=== PATIENT | female | born 1945 | race Caucasian/White ===

== ENCOUNTER 2021-06-23 16:14 | Emergency (ER) | payer OTHER, SELFPAY ==
--- NOTE | ~2021-06-23 | XR_ITS ---
EXAMINATION: XR shoulder LT min 2V DATE: 06/23/2021 16:40 INDICATION: Left shoulder pain. Decreased range of motion. TECHNIQUE: AP internally and externally rotated, AP oblique externally rotated and transscapular Y vi ews of the left shoulder were obtained. COMPARISON: None FINDINGS: Normal alignment. No fracture. Glenohumeral joint is normal. Mild acromioclavicular osteoarthritis. Large anterior subacromial spur. Mild cystic and hypertrophic change along the greater tuberosity whi ch can be seen in the setting of chronic rotator cuff disease. Soft tissues are unremarkable. Visuali zed portion of the left lung is clear. IMPRESSION: Large subacromial spur and cystic and hypertrophic change along the greater tuberosity which suggests possibility of chronic rotator cuff disease. Reviewed, dictated and finalized at location A. ECT SCHEDULER IMPRESSION: Large subacromial spur and cystic and hypertrophic change along the greater tub erosity which suggests possibility of chronic rotator cuff disease.
[2021-06-23 16:24] VITALS: BP 177/90; PULSE 81; RESP 16; TEMP 36.3; O2SAT 99
--- NOTE | 2021-06-23 16:46 | ED.UPPEXIN ---
HPI - Extremity Injury (Upper) General Chief Complaint: Extremity Problem,Nontraumatic Stated Complaint: Left shoulder Pain Time Seen by Provider: 06/23/21 16:25 Source: patient, family, RN notes reviewed and old records reviewed Mode of arrival: ambulatory Limitations: no limitations History of Present Illness HPI narrative: 76-year-old female presents to the [facility] with left shoulder pain since 3 PM today. 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 Has decreased range of motion. No bruising or swelling noted. Tried applying ice to the area Related Data Allergies Allergy/AdvReac Type Severity Reaction Status Date / Time No Known Allergies Allergy Verified 06/23/21 16:17 Review of Systems Review of Systems: All systems reviewed & are unremarkable except as noted in HPI and below Constitutional: Constitutional: Reports no additional constitutional complaints, Denies chills, Denies fever(s), Denies headache(s) and Denies weakness Eyes: Eyes: Reports no additional eye complaints ENT: Reports system reviewed and no additional complaints, except as documented, Denies vertigo, Denies dizziness and Denies headache(s) Cardiovascular: Cardiovascular: Reports no additional cardiovascular complaints, Denies chest pain, Denies syncope and Denies dyspnea Respiratory: Respiratory: Reports no additional respiratory complaints, Denies cough and Denies dyspnea Gastrointestinal: Gastrointestinal: Reports no additional gastrointestinal complaints, Denies abdominal pain, Denies nausea and Denies vomiting Musculoskeletal: Musculoskeletal: Reports as per HPI, Reports arthralgias (Left lateral and anterior shoulder), Denies joint swelling and Denies numbness Integumentary/Breasts: Skin/Breast: Reports system reviewed and no additional complaints, except as docu Neurologic: Reports system reviewed and no additional complaints, except as documented, Denies confusion, Denies vertigo, Denies dizziness, Denies syncope, Denies headache(s), Denies focal weakness, Denies numbness and Denies weakness Psychiatric: Psychiatric: Reports no additional psychiatric complaints and Denies confusion Allergic/Immunologic: Allergic/Immunologic: Reports no additional allergic/immunologic complaints [facility] Family History Family History Father Cerebrovascular accident Mother Cerebrovascular accident Social History Social History Smoking status: Never smoker Alcohol intake: never Substance use: never Comments At the time of my signature, I reviewed and agree with the nursing past medical, surgical, social, and family history. There is no relevant family history pertinent to the patient complaint. Exam Const: General: healthy appearing, no acute distress and alert; No confusion Nutritional Appearance: well nourished Orientation/consciousness: patient oriented x3 Limitations: no limitations HENMT: Head: normal to inspection Ears: external ears normal Eyes: Pupils: Equal, round and reactive pupils present Neck: Neck: normal visual inspection, no lymphadenopathy and no meningeal signs Chest: Chest palpation & inspection: normal inspection of the chest Resp: Effort & Inspection: normal respiratory effort and no use of accessory muscles Auscultation: clear to auscultation bilaterally, no crackles, no rales, no rhonchi and no wheezes Cardio: Rate: regular rate Rhythm: regular rhythm : General: Yes no CVA tenderness Back/Spine/Pelvis: Back: no CVA tenderness Cervical Spine: normal cervical lordosis Thoracic/Lumbar Spine: thoracic and lumbar spine normal to inspection Skin: General skin exam: normal color Rashes: no rashes Wounds: no wounds Neuro: General: patient oriented x3, moves all extremities, no meningeal signs, no focal
== END 2021-06-23 17:10 | disposition home or self-care (01) ==
PROVIDERS: Emergency Provider Nurse Practitioner; PCP Internal Medicine
DX: S46.912A Strain of unspecified muscle, fascia and tendon at shoulder and upper arm level, left arm, initial encounter (principal); X50.9XXA Other and unspecified overexertion or strenuous movements or postures, initial encounter; M67.912 Unspecified disorder of synovium and tendon, left shoulder; E78.00 Pure hypercholesterolemia, unspecified; I10 Essential (primary) hypertension
CPT/HCPCS: 73030; 99213; G0463

== ENCOUNTER → 2021-07-01 17:09 | Outpatient (CLI) | payer OTHER, SELFPAY ==
--- NOTE | ~2021-07-01 | XR_ITS ---
EXAMINATION: XR wrist LT min 3V DATE: 07/01/2021 17:24 INDICATION: Left wrist pain TECHNIQUE: Posteroanterior, ulnar deviation, oblique, and lateral views of the left wrist were obtain ed. COMPARISON: 08/05/2015 FINDINGS: Bone alignment is normal. No fracture. Polyarticular osteoarthritis, moderate severity at the first c arpometacarpal joint and mild at the wrist, distal radioulnar, pisotriquetral, midcarpal and triscaph e joints. There are now a couple rim calcified lesions in the soft tissues volar to the ulnar side of the wrist proximal to the pisotriquetral articulation. Soft tissues are otherwise unremarkable. IMPRESSION: 1. Polyarticular osteoarthritis, moderate at the first carpometacarpal joint and otherwise mild at se veral joints at the left hand and wrist. 2. A couple rim calcified lesions projecting over the soft tissues in the region of the pisotriquetra l recess, likely a degenerative loose osteochondral body although differential would include rim calc ified ulnar artery aneurysm. Reviewed, dictated and finalized at location A. T ROLLER COVERMAKER IMPRESSION: 1. Polyarticular osteoarthritis, moderate at the first carpometacarpal joint an d otherwise mild at several joints at the left hand and wrist. 2. A couple rim calcified lesions projecting over the soft tissues in the regio n of the pisotriquetral recess, likely a degenerative loose osteochondral body although differential would include rim calcified ulnar artery aneurysm.
== END ==
LOC: EXPCRAD 17:11
PROVIDERS: PCP Family Medicine; Visit Provider Family Medicine
DX: M19.032 Primary osteoarthritis, left wrist (principal)
CPT/HCPCS: 73110

== ENCOUNTER 2021-10-25 11:15 | Outpatient (CLI) | payer OTHER, SELFPAY ==
--- NOTE | ~2021-10-25 | MR_ITS ---
EXAMINATION: MR wrist LT wo con DATE: 10/25/2021 12:06 INDICATION: Localized swelling, mass or lump at the left wrist with pain at the ulnar side of the car pus and fourth and fifth finger numbness. TECHNIQUE: Magnetic resonance imaging (MRI) of the left wrist was performed without intravenous contr ast. Sequences performed include axial PD-weighted FSE and PD-weighted FS FSE, coronal PD-weighted FS FSE and T1-weighted SE, and sagittal PD-weighted FS FSE and PD-weighted FSE. COMPARISON: None FINDINGS: Intrinsic ligaments: The scapholunate and lunotriquetral ligaments are both intact. Triangular fibrocartilage complex (TFCC): Partial tears of the central fibrocartilaginous disc and both the ulnar styloid and foveal attachment s of the triangular fibrocartilage complex. The dorsal and volar radioulnar ligaments remain otherwi se intact. Additional partial tear of the ulnar collateral ligament and ulnotriquetral ligaments. The extensor carpi ulnaris tendon sheath remains intact. Extensor wrist: Extensor tendons of the wrist are normal. No tenosynovitis. Flexor wrist: The flexor tendons of the wrist are normal. No abnormality in the carpal tunnel with normal median n erve. Bones/other: Bone alignment is normal. No fracture or pathologic marrow replacing process. Polyarticular osteoarth ritis. Moderate severity at the first carpometacarpal joint and mild at the distal radioulnar, wrist, midcarpal, triscaphe and pisotriquetral articulations. Large degenerative loose osteochondral bodies within the pisotriquetral recess at the volar/ulnar aspect of the wrist. Prominent cystic change at the larger of the 3 loose osteochondral bodies. One of the smaller in the distalmost of the 3 loose o steochondral bodies abuts the deep margin of the ulnar nerve at the entrance to Guyon's canal with th e tip of the fusiform on the opposite side of the ulnar nerve. No erosions to suggest inflammatory ar thritis. IMPRESSION: 1. Large loose osteochondral bodies at the pisotriquetral recess, one with prominent cystic changes a nd a second abutting the deep margin of the ulnar nerve at the entrance to Guyon's canal. This may re present the etiology for the reported numbness of the fourth and fifth digits. 2. Polyarticular osteoarthritis, moderate severity at the first carpometacarpal joint and otherwise m ild at multiple additional joints in the left wrist and carpus. 3. Partial tears of multiple components of the triangular fibrocartilage complex. Reviewed, dictated and finalized at location B. IMPRESSION: 1. Large loose osteochondral bodies at the pisotriquetral recess, one with prom inent cystic changes and a second abutting the deep margin of the ulnar nerve a t the entrance to Guyon's canal. This may represent the etiology for the report ed numbness of the fourth and fifth digits. 2. Polyarticular osteoarthritis, moderate severity at the first carpometacarpal joint and otherwise mild at multiple additional joints in the left wrist and c arpus. 3. Partial tears of multiple components of the triangular fibrocartilage comple x.
== END 2021-10-25 11:16 ==
PROVIDERS: PCP Family Medicine; Visit Provider Orthopaedic Surgery
DX: R22.32 Localized swelling, mass and lump, left upper limb (principal); M19.031 Primary osteoarthritis, right wrist
CPT/HCPCS: 73221

== ENCOUNTER 2021-11-25 07:14 | Outpatient (CLI) | payer OTHER, SELFPAY ==
--- NOTE | ~2021-11-25 | MM_ITS ---
EXAMINATION: MM screening felisha BI w josh HISTORY: Screening TECHNIQUE: Craniocaudal and mediolateral oblique 3-D tomosynthesis images were obtained and synthetic 2-D images were generated. CAD analysis was submitted and interpreted. COMPARISON: No prior mammogram is available for comparison at this institution. BREAST PARENCHYMAL COMPOSITION: Breast composed of scattered areas of fibroglandular density FINDINGS: Bilateral breast asymmetries are stable. There is a developing cluster of indeterminate mauro cifications in the upper outer quadrant of the left breast, middle third. IMPRESSION: 1. Developing clustered indeterminate left breast calcifications, upper outer quadrant. 2. Magnification views are recommended. BI-RADS Category 0: Incomplete: Needs additional imaging evaluation. Reviewed, dictated and finalized at location A. IMPRESSION: 1. Developing clustered indeterminate left breast calcifications, upper outer q uadrant. 2. Magnification views are recommended. BI-RADS Category 0: Incomplete: Needs additional imaging evaluation.
== END 2021-11-25 07:15 | disposition home or self-care (01) ==
LOC: ANHIMG 07:16
PROVIDERS: PCP Family Medicine; Visit Provider Family Medicine
DX: Z12.31 Encounter for screening mammogram for malignant neoplasm of breast (principal); R92.8 Other abnormal and inconclusive findings on diagnostic imaging of breast
CPT/HCPCS: 77063; 77067

== ENCOUNTER 2021-12-04 12:04 | Outpatient (CLI) | payer OTHER, SELFPAY ==
--- NOTE | ~2021-12-04 | MM_ITS ---
EXAMINATION: MM diagnostic mammo unilat LT HISTORY: Developing clustered microcalcifications reported in upper outer quadrant of left breast on 11/25/2021 screening mammogram TECHNIQUE: Additional ML 3-D tomosynthesis images of the left breast were performed and synthetic 2-D images were generated. Magnification ML, MLO and CC views of upper outer quadrant of left breast CAD analysis was submitted and interpreted. COMPARISON: 11/25/2021 and 10/13/2016 bilateral screening mammogram examinations FINDINGS: Likely benign microcalcifications and arterial calcifications are noted on the left. No jerod picious linear or branching microcalcifications are noted. Upper outer quadrant left breast ultrasound correlation is recommended. IMPRESSION: 1. Probable benign microcalcifications, upper outer quadrant of left breast 2. Upper outer quadrant left breast ultrasound examination is recommended BI-RADS Category 0: Incomplete: Needs additional imaging evaluation. Reviewed, dictated and finalized at location A.
== END 2021-12-04 12:05 | disposition home or self-care (01) ==
PROVIDERS: PCP Family Medicine; Visit Provider Family Medicine
DX: R92.8 Other abnormal and inconclusive findings on diagnostic imaging of breast (principal)
CPT/HCPCS: 77065

== ENCOUNTER 2021-12-17 13:18 | Outpatient (CLI) | payer OTHER, SELFPAY ==
--- NOTE | ~2021-12-17 | US_ITS ---
EXAMINATION: US breast LT limited HISTORY: Patient with recent diagnostic mammogram demonstrating calcifications with possible associat ed mass TECHNIQUE: Limited left breast ultrasound is performed. FINDINGS: There is no evidence of focal abnormal cystic or solid mass in the vicinity of the mammogra phic finding in question. IMPRESSION: No sonographically detected mass. Six month follow-up left diagnostic mammogram is recommended for pr obably benign calcifications. BI-RADS category 3, probably benign findings. Reviewed, dictated and finalized at location A. IMPRESSION: No sonographically detected mass. Six month follow-up left diagnostic mammogram is recommended for probably benign calcifications. BI-RADS category 3, probably benign findings.
== END 2021-12-17 13:19 | disposition home or self-care (01) ==
PROVIDERS: PCP Family Medicine; Visit Provider Family Medicine
DX: R92.8 Other abnormal and inconclusive findings on diagnostic imaging of breast (principal)
CPT/HCPCS: 76642

== ENCOUNTER → 2022-04-20 11:36 | Outpatient (CLI) | payer OTHER, SELFPAY ==
--- NOTE | ~2022-04-20 | XR_ITS ---
Lumbosacral Spine: AP, oblique, and lateral views Clinical History: Pain The normal lordotic curve is maintained. The vertebral bodies and posterior elements are intact. Th e intervertebral disc spaces are preserved. Mild facet joint degenerative changes are present from L2 through S1. The sacroiliac joints are normally outlined. Impression: Mild facet joint degenerative changes, as above. Reviewed, dictated and finalized at location . NG CARRIER Impression: Mild facet joint degenerative changes, as above.
== END ==
PROVIDERS: PCP Family Medicine; Visit Provider Family Medicine
DX: M54.50 Low back pain, unspecified (principal)
CPT/HCPCS: 72110

== ENCOUNTER 2022-04-20 11:55 | Outpatient (CLI) | payer OTHER, SELFPAY ==
[2022-04-20 18:55] LABS: Hemoglobin A1C 5.6 % (<5.7)
[2022-04-20 19:00] LABS: Alanine Aminotransferase 25 U/L (6-35); Albumin Level 4.1 g/dL (3.5-5.1); Alkaline Phosphatase 85 U/L (38-126); Anion Gap 7 mmol/L (8-16); Aspartate Amino Transferase 59 U/L (14-36); Bilirubin,Total 1.5 mg/dL (0.2-1.3); Blood Urea Nitrogen 19 mg/dL (7-17); Calcium 9.3 mg/dL (8.4-10.2); Carbon Dioxide 28 mmol/L (22-30); Chloride 102 mmol/L (98-107); Cholesterol 148 mg/dL (0-200); Estimated Glomerular Filt Rate 54; Glucose 107 mg/dL (65-110); HDL Direct 44 mg/dL; Potassium 4.3 mmol/L (3.4-5.0); Sodium 137 mmol/L (137-145); Triglycerides 193 mg/dL (<150)
[2022-04-20 19:11] LABS: LDL Cholesterol Direct 67 mg/dL
[2022-04-20 19:12] LABS: Basophils Absolute Auto 0.1 K/mm3 (0.0-0.1); Basophils Percent Auto 0.9 % (0.2-1.2); Eosinophils Absolute Auto 0.2 K/mm3 (0-0.3); Hematocrit 43.2 % (37.0-47.0); Hemoglobin 14.1 g/dL (12.0-15.0); Immature Granulocyte Absolute 0.02 K/mm3 (0.00-0.031); Immature Granulocyte Percent A 0.2 % (0-0.5); Lymphocytes Absolute Auto 2.39 K/mm3 (0.9-3.2); Lymphocytes Percent Auto 29.5 % (18.3-44.2); Mean Corpuscular HGB Conc 32.6 g/dl (32-36); Mean Corpuscular Hemoglobin 31.3 pg (26-34); Mean Platelet Volume 9.6 fl (7.4-10.4); Monocytes Absolute Auto 0.6 K/mm3 (0.1-0.6); Monocytes Percent Auto 7.3 % (2.6-8.5); Neutrophils Absolute Auto 4.9 K/mm3 (1.3-6.7); Neutrophils Percent Auto 60.1 % (45.5-73.1); Platelet Count Result 350 k/mm3 (150-375); Red Cell Distribution Width 13.4 % (11.5-14.5); White Blood Count 8.1 K/mm3 (4.5-10.0)
[2022-04-20 20:45] LABS: Erythrocyte Sedimentation Rate 13 mm/hr (0-20)
[2022-04-21 02:43] LABS: Folic Acid 17.1 ng/mL (2.76->20)
[2022-04-26 06:01] LABS: Alpha 1 Globulin 0.3 g/dL (0.2-0.3); Alpha 2 Globulin 0.8 g/dL (0.5-0.9); Beta 1 Globulin 0.5 g/dL (0.4-0.6); Gamma Globulin 1.2 g/dL (0.8-1.7); Protein, Total 7.2 g/dL (6.1-8.1)
== END 2022-04-20 11:56 | disposition home or self-care (01) ==
LOC: ANHGOSHLAB 11:56
PROVIDERS: PCP Family Medicine; Visit Provider Family Medicine
DX: G62.9 Polyneuropathy, unspecified (principal); Z13.29 Encounter for screening for other suspected endocrine disorder; I10 Essential (primary) hypertension; R53.83 Other fatigue; E11.9 Type 2 diabetes mellitus without complications; E78.2 Mixed hyperlipidemia
CPT/HCPCS: 36415; 72110; 80053; 80061; 82607; 82746; 83036; 84155; 84165; 84443; 85025; 85652; 86038

== ENCOUNTER 2022-06-29 11:11 | Outpatient (CLI) | payer OTHER, SELFPAY ==
--- NOTE | ~2022-06-29 | XR_ITS ---
AP and lateral views of the left tibia/fibula Clinical History: Pain and tingling Findings: No acute fracture or dislocation is seen. Osseous alignment is anatomic. Joint spaces are p reserved without significant erosive or degenerative change. Soft tissues are unremarkable. Impression: Unremarkable left tib-fib radiographs. Reviewed, dictated and finalized at location . TRUCKER Impression: Unremarkable left tib-fib radiographs.
== END 2022-06-29 11:12 ==
LOC: MICIMG 11:12
PROVIDERS: PCP Family Medicine; Visit Provider Family Medicine
DX: M79.605 Pain in left leg (principal)
CPT/HCPCS: 73590

== ENCOUNTER 2022-07-26 09:06 | Emergency (ER) | payer OTHER, SELFPAY ==
[2022-07-26 09:25] VITALS: BP 160/95; PULSE 63; RESP 14; TEMP 36.5; O2SAT 97
--- NOTE | 2022-07-26 09:45 | ED.URI ---
HPI - URI/Sore Throat General Chief Complaint: Upper Respiratory Infection Stated Complaint: Left Ear Irritation/Headache/Face Time Seen by Provider: 07/26/22 09:45 Source: patient, RN notes reviewed and old records reviewed Mode of arrival: ambulatory Limitations: no limitations History of Present Illness HPI Narrative: 77-year-old female presents to the [facility] with complaints of left ear pain, headache and facial pressure that started yesterday. Denies fevers. 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 No treatment prior to arrival Onset (ago): day(s) (1) Treatments prior to arrival: none Related Data Allergies Allergy/AdvReac Type Severity Reaction Status Date / Time No Known Allergies Allergy Verified 07/26/22 09:11 Review of Systems Review of Systems: All systems reviewed & are unremarkable except as noted in HPI and below Constitutional: Constitutional: Reports no additional constitutional complaints Eyes: Eyes: Reports no additional eye complaints ENT: Reports as per HPI Cardiovascular: Cardiovascular: Reports no additional cardiovascular complaints, Denies chest pain and Denies dyspnea Respiratory: Respiratory: Reports no additional respiratory complaints, Denies chest congestion, Denies cough and Denies dyspnea Gastrointestinal: Gastrointestinal: Reports no additional gastrointestinal complaints, Denies abdominal pain, Denies nausea and Denies vomiting Musculoskeletal: Musculoskeletal: Reports no additional musculoskeletal complaints Integumentary/Breasts: Skin/Breast: Reports system reviewed and no additional complaints, except as docu Neurologic: Reports system reviewed and no additional complaints, except as documented Psychiatric: Psychiatric: Reports no additional psychiatric complaints Allergic/Immunologic: Allergic/Immunologic: Reports no additional allergic/immunologic complaints [facility] Past Medical History Medical History Claustrophobia Hearing loss High cholesterol Hypertension Psoriasis Wears glasses Family History Family History Father Cerebrovascular accident Mother Cerebrovascular accident Other High cholesterol Hypertension Social History Social History Smoking status: Never smoker Alcohol intake: current Drinks per week: 3 Substance use: never Lack of Transportation: No Lack of Food: Never True Current Housing: I Have Housing Concerned About Future Housing: No Difficulty Paying Gas/Electric Bills: No Difficulty Paying for Meds: No Currently Unemployed: No Education: High School Diploma/GED Difficulty w/ Childcare or Family Care: No Comments At the time of my signature, I reviewed and agree with the nursing past medical, surgical, social, and family history. There is no relevant family history pertinent to the patient complaint. Exam Const: General: cooperative, healthy appearing, comfortable, no acute distress, well developed, alert and well nourished Nutritional Appearance: well nourished Orientation/consciousness: patient oriented x3 Limitations: no limitations HENMT: Head: normal to inspection Ears: hearing grossly normal bilaterally, external ears normal and TM abnormal bulging bilateral and with fluid behind the TM bilateral; not erythematous Face/Nose/Sinus: Normal external nose present, Normal nares present, Normal nasal mucous membranes and turbinates present, normal facial exam, sinuses nontender, face symmetric, No ecchymosis and No erythema Face and sinus: normal facial exam and face symmetric Mouth: Yes Normal oral and palatal mucosa present, Yes lip normal and Yes moist mucous membranes Throat: posterior oropharynx normal, tonsils normal and uvula midline Eyes: General: appearance normal, both eyes and all related structur
== END 2022-07-26 10:05 | disposition home or self-care (01) ==
PROVIDERS: Emergency Provider Nurse Practitioner; PCP Family Medicine
DX: J06.9 Acute upper respiratory infection, unspecified (principal); H65.03 Acute serous otitis media, bilateral; I10 Essential (primary) hypertension; Z20.822 Contact with and (suspected) exposure to COVID-19
CPT/HCPCS: 87081; 87426; 87880; 99213; C9803; G0463

== ENCOUNTER 2023-02-04 07:01 | Outpatient (CLI) | payer OTHER, SELFPAY ==
--- NOTE | ~2023-02-04 | MR_ITS ---
MRI of the lumbar spine Clinical History: Lower extremity numbness Technique: Axial T2-weighted images, and sagittal T1-weighted, T2-weighted, and and T2 fat-sat images were acquired. Findings: No acute fracture identified. There is 3 mm anterolisthesis of L2 over L3. There is minimal grade 1 retrolisthesis of L5 over S1. No suspicious bone marrow signal abnormality seen. At L1-L2, there is minimal disc bulge. There is moderate to advanced facet arthropathy. No central ca nal stenosis or definite neural foraminal narrowing. At L2-L3, there is disc bulge and severe facet arthropathy, resulting in moderate to severe spinal ca nal stenosis/thecal sac compression. There is mild bilateral neural foraminal narrowing. L3-L4, disc bulge and severe facet arthropathy result in severe spinal canal stenosis/thecal sac comp ression. There is moderate left neural foraminal narrowing, and mild to moderate right neural foramin al narrowing. At L4-L5, disc bulge and facet arthropathy result in severe spinal canal stenosis/thecal sac compress ion. There is mild to moderate bilateral neural foraminal narrowing, left worse than right. At L5-S1, disc bulge and facet joint arthropathy are present. There is mild to moderate central canal stenosis. There is moderate bilateral neural foraminal narrowing. Paravertebral soft tissues are unremarkable. Impression: Advanced degenerative spondylosis, as detailed above. There is multilevel spinal canal stenosis and t hecal sac compression, as well as multilevel neural foraminal narrowing. 3 mm anterolisthesis of L2 over L3. Minimal grade 1 retrolisthesis of L5 over S1. Reviewed, dictated and finalized at [facility]. Impression: Advanced degenerative spondylosis, as detailed above. There is multilevel spina l canal stenosis and thecal sac compression, as well as multilevel neural jeannette inal narrowing. 3 mm anterolisthesis of L2 over L3. Minimal grade 1 retrolisthesis of L5 over S1.
== END 2023-02-04 07:02 ==
LOC: MICIMG 07:02
PROVIDERS: PCP Family Medicine; Visit Provider Family Medicine
DX: R20.0 Anesthesia of skin (principal); M48.07 Spinal stenosis, lumbosacral region; M47.817 Spondylosis without myelopathy or radiculopathy, lumbosacral region; M43.17 Spondylolisthesis, lumbosacral region; G95.29 Other cord compression
CPT/HCPCS: 72148

== ENCOUNTER 2023-05-06 09:52 | Outpatient (CLI) | payer OTHER, SELFPAY ==
[2023-05-06 20:22] LABS: Alanine Aminotransferase 31 U/L (6-35); Albumin Level 4.1 g/dL (3.5-5.1); Alkaline Phosphatase 90 U/L (38-126); Anion Gap 7 mmol/L (8-16); Aspartate Amino Transferase 43 U/L (14-36); Bilirubin,Total 1.8 mg/dL (0.2-1.3); Blood Urea Nitrogen 17 mg/dL (7-17); Calcium 9.4 mg/dL (8.4-10.2); Carbon Dioxide 28 mmol/L (22-30); Chloride 99 mmol/L (98-107); Cholesterol 145 mg/dL (0-200); Estimated Glomerular Filt Rate 54; Glucose 105 mg/dL (65-110); HDL Direct 45 mg/dL; Potassium 4.3 mmol/L (3.4-5.0); Sodium 134 mmol/L (137-145); Triglycerides 199 mg/dL (<150)
[2023-05-06 20:32] LABS: LDL Cholesterol Direct 69 mg/dL
== END 2023-05-06 09:53 | disposition home or self-care (01) ==
LOC: ANHGOSHLAB 09:53
PROVIDERS: PCP Family Medicine; Visit Provider Family Medicine
DX: E78.2 Mixed hyperlipidemia (principal); Z13.228 Encounter for screening for other metabolic disorders
CPT/HCPCS: 36415; 80053; 80061

== ENCOUNTER 2023-06-15 16:58 | Emergency (ER) | payer OTHER, SELFPAY ==
[2023-06-15 17:14] VITALS: BP 162/94; PULSE 105; RESP 20; TEMP 36.2; O2SAT 98
--- NOTE | 2023-06-15 18:30 | ED.URI ---
HPI - URI/Sore Throat General Chief Complaint: Upper Respiratory Infection Stated Complaint: sore throat,earaches,bocdy chills Time Seen by Provider: 06/15/23 18:30 Source: patient, RN notes reviewed and old records reviewed Mode of arrival: ambulatory Limitations: no limitations History of Present Illness HPI Narrative: 78-year-old female presents to the [facility] with complaints of sore throat, ear aches, body aches and chills since Wednesday, 4 days. States he took an allergy medication on Wednesday made her feel little bit better but does not take much other medications. Related Data Allergies Allergy/AdvReac Type Severity Reaction Status Date / Time No Known Allergies Allergy Verified 06/15/23 17:52 Review of Systems Review of Systems: All systems reviewed & are unremarkable except as noted in HPI and below Constitutional: Constitutional: Reports as per HPI and Reports body ache(s) Eyes: Eyes: Reports no additional eye complaints ENT: Reports as per HPI Cardiovascular: Cardiovascular: Reports no additional cardiovascular complaints, Denies chest pain and Denies dyspnea Respiratory: Respiratory: Reports no additional respiratory complaints, Denies chest congestion, Denies cough and Denies dyspnea Gastrointestinal: Gastrointestinal: Reports no additional gastrointestinal complaints, Denies abdominal pain, Denies nausea and Denies vomiting Musculoskeletal: Musculoskeletal: Reports no additional musculoskeletal complaints Integumentary/Breasts: Skin/Breast: Reports system reviewed and no additional complaints, except as docu Neurologic: Reports system reviewed and no additional complaints, except as documented Psychiatric: Psychiatric: Reports no additional psychiatric complaints Allergic/Immunologic: Allergic/Immunologic: Reports no additional allergic/immunologic complaints [facility] Past Medical History Medical History Claustrophobia Hearing loss High cholesterol Hypertension Psoriasis Wears glasses Family History Family History Father Cerebrovascular accident Mother Cerebrovascular accident Other High cholesterol Hypertension Social History Social History Smoking status: Never smoker Alcohol intake: current Drinks per week: 3 Substance use: never Lack of Transportation: No Lack of Food: Never True Current Housing: I Have Housing Concerned About Future Housing: No Difficulty Paying Gas/Electric Bills: No Difficulty Paying for Meds: No Currently Unemployed: No Education: High School Diploma/GED Difficulty w/ Childcare or Family Care: No Comments At the time of my signature, I reviewed and agree with the nursing past medical, surgical, social, and family history. There is no relevant family history pertinent to the patient complaint. Exam Const: General: cooperative, healthy appearing, comfortable, no acute distress, well developed, alert and well nourished Nutritional Appearance: well nourished and obese Orientation/consciousness: patient oriented x3 Limitations: no limitations HENMT: Head: normal to inspection Ears: hearing grossly normal bilaterally, external ears normal, EAC's normal, mastoids normal, no periauricular adenopathy and TM abnormal with fluid behind the TM bilateral Face/Nose/Sinus: Normal external nose present, Normal nares present, Normal nasal mucous membranes and turbinates present, normal facial exam and face symmetric Face and sinus: normal facial exam and face symmetric Mouth: Yes Normal oral and palatal mucosa present, Yes lip normal and Yes moist mucous membranes Throat: posterior oropharynx normal and uvula midline Eyes: General: appearance normal, both eyes and all related structures Alignment and Position: alignment normal Periorbital: periorbital findings normal Pupils: Equal,
== END 2023-06-15 18:40 | disposition home or self-care (01) ==
PROVIDERS: Emergency Provider Nurse Practitioner; PCP Family Medicine
DX: J06.9 Acute upper respiratory infection, unspecified (principal); I10 Essential (primary) hypertension; Z20.822 Contact with and (suspected) exposure to COVID-19
CPT/HCPCS: 87081; 87426; 87804; 87880; 99213; G0463

== ENCOUNTER 2023-06-28 09:56 | Outpatient (CLI) | payer OTHER, SELFPAY ==
--- NOTE | ~2023-06-28 | MM_ITS ---
EXAMINATION: MM diagnostic felisha BI w josh HISTORY: Follow-up left breast calcifications TECHNIQUE: Additional 3-D tomosynthesis images of the breasts were performed and synthetic 2-D images were generated. CAD analysis was submitted and interpreted. COMPARISON: Comparison to multiple prior studies sequentially, with oldest reviewed study dated 06/2014. BREAST PARENCHYMAL COMPOSITION: Not dense: There are scattered areas of fibroglandular density. FINDINGS: The right breast is stable without evidence for malignancy. There is a cluster of calcifica tions in the upper outer quadrant of the left breast. These calcifications are not significantly rivers ged compared with 12/04/2021, likely benign. There are benign right breast calcifications which are st able. There is a stable benign-appearing mass in the right breast. IMPRESSION: 1. Stable likely benign clustered calcifications upper outer quadrant of the left breast. 2. Given one year of interval stability, recommend 12 month followup. BI-RADS CATEGORY 3-PROBABLY BENIGN FINDING Reviewed, dictated and finalized at location A. OPERATIVE TECH IMPRESSION: 1. Stable likely benign clustered calcifications upper outer quadrant of the le ft breast. 2. Given one year of interval stability, recommend 12 month followup. BI-RADS CATEGORY 3-PROBABLY BENIGN FINDING
== END 2023-06-28 09:57 | disposition home or self-care (01) ==
LOC: ANHIMG 09:57
PROVIDERS: PCP Family Medicine; Visit Provider Family Medicine
DX: R92.0 Mammographic microcalcification found on diagnostic imaging of breast (principal)
CPT/HCPCS: 77062; 77066; G0279

== ENCOUNTER 2023-09-11 07:14 | Outpatient (CLI) | payer OTHER, SELFPAY ==
[2023-09-11 07:37] LABS: Basophils Percent Auto 0.4 % (0.2-1.2); Eosinophils Absolute Auto 0.3 K/mm3 (0-0.3); Eosinophils Percent Auto 3.4 % (0-4.4); Hematocrit 40.3 % (37.0-47.0); Hemoglobin 13.3 g/dL (12.0-15.0); Immature Granulocyte Absolute 0.01 K/mm3 (0.00-0.031); Immature Granulocyte Percent A 0.1 % (0-0.5); Lymphocytes Absolute Auto 2.84 K/mm3 (0.9-3.2); Lymphocytes Percent Auto 38.5 % (18.3-44.2); Mean Corpuscular Hemoglobin 30.9 pg (26-34); Mean Corpuscular Volume 93.5 fl (80-100); Mean Platelet Volume 9.3 fl (7.4-10.4); Monocytes Absolute Auto 0.7 K/mm3 (0.1-0.6); Neutrophils Absolute Auto 3.6 K/mm3 (1.3-6.7); Neutrophils Percent Auto 48.6 % (45.5-73.1); Platelet Count Result 226 k/mm3 (150-375); Red Blood Count 4.31 M/mm3 (4.2-5.4); White Blood Count 7.4 K/mm3 (4.5-10.0)
--- NOTE | 2023-09-11 07:39 | ECG_ITS ---
SEE SCANNED COPY FOR CONFIRMED REPORT MTDD
[2023-09-11 07:53] LABS: Alanine Aminotransferase 25 U/L (6-35); Albumin Level 4.2 g/dL (3.5-5.1); Alkaline Phosphatase 82 U/L (38-126); Anion Gap 6 mmol/L (4-12); Aspartate Amino Transferase 29 U/L (14-36); Bilirubin,Total 1.4 mg/dL (0.2-1.3); Blood Urea Nitrogen 22 mg/dL (7-17); CRP < 0.5 mg/dL (<1.0); Calcium 9.6 mg/dL (8.4-10.2); Carbon Dioxide 25 mmol/L (22-30); Chloride 107 mmol/L (98-107); Estimated Glomerular Filt Rate 54; Glucose 103 mg/dL (65-110); Potassium 4.4 mmol/L (3.4-5.0); Sodium 138 mmol/L (137-145)
[2023-09-11 07:55] LABS: Appearance Urine Clear (Clear); Bacteria Urine None Seen /hpf; Bilirubin Urine Negative (Negative); Blood Urine Negative (Negative); Color Urine Yellow (Yellow); Glucose Urine UA Negative (Negative); Ketones Urine Negative (Negative); Leukocyte Esterase Ur 1+ LEU/UL (Negative); Need Manual Microscopic Reviewed; Nitrate Urine Negative (Negative); Non Pathogenic Casts 0-2; Protein Urine Negative (Negative); RBC Urine 0-2 /hpf (0-2); Specific Grav Ur 1.016 (1.001-1.035); Squamous Epithelial Cell Urine Occasional /hpf (Few); Urobilinogen Urine 0.2 mg/dL (<2.0); WBC Urine 0-5 /hpf (0-3); pH Urine 5.5 (5.0-9.0)
[2023-09-11 08:01] LABS: Add Urine Microscopic? YES
[2023-09-11 08:08] LABS: Erythrocyte Sedimentation Rate 17 mm/hr (0-20)
== END 2023-09-11 07:15 | disposition home or self-care (01) ==
LOC: ANHLAB 07:16
PROVIDERS: PCP Family Medicine; Visit Provider Nurse Practitioner Family
DX: Z01.818 Encounter for other preprocedural examination (principal)
CPT/HCPCS: 36415; 80053; 81001; 85025; 85652; 86140; 93005

== ENCOUNTER 2023-12-18 07:31 | Outpatient (CLI) | payer OTHER, SELFPAY ==
--- NOTE | ~2023-12-18 | MR_ITS ---
EXAMINATION: MR lumbar spine wo con DATE: 12/18/2023 08:17 INDICATION: Low back pain. Lumbar stenosis with neurogenic claudication. TECHNIQUE: Magnetic resonance imaging (MRI) of the lumbar spine was performed without intravenous con trast. Sequences included sagittal T2-weighted FSE, sagittal T2-weighted FS FSE, sagittal T1-weighted FSE, and axial T2-weighted FSE. COMPARISON: Lumbar spine MRI 02/04/2023 FINDINGS: There is 5 degrees levocurvature of lumbar spine. There is 3 mm anterolisthesis of L2 on L3 and L3 on L4 and 3 mm retrolisthesis of L4 on L5 and L5 on S1. There are Schmorl's nodes at multiple levels. There is mildly decreased disc height at L2-L3 and moderately decreased disc height at L5-S1 . The distal spinal cord signal intensity is normal. The conus medullaris is at L1. The following dis c levels are specifically discussed: L1-L2: The disc is bulging. There is severe bilateral facet joint osteoarthritis. There is mild bilat eral neural foraminal stenosis. There is mild central canal stenosis. L2-L3: The disc is bulging. There is severe bilateral facet joint osteoarthritis. There is mild bilat eral neural foraminal stenosis. There is mild central canal stenosis. L3-L4: The disc is bulging and has an annular fissure. There is severe bilateral facet joint osteoart hritis. There is mild bilateral neural foraminal stenosis. There is moderate central canal stenosis. L4-L5: The disc is bulging and has an annular fissure. There is moderate bilateral facet joint osteoa rthritis. There is moderate bilateral neural foraminal stenosis. There is mild central canal stenosis . L5-S1: The disc is bulging and has an annular fissure. There is severe bilateral facet joint osteoart hritis. There is mild bilateral neural foraminal stenosis. There is mild central canal stenosis. Ther e is moderate stenosis of left lateral recess. IMPRESSION: 1. Moderate lumbar spondylosis, stable from 02/04/2023. Reviewed, dictated and finalized at location A.
== END 2023-12-18 07:32 ==
PROVIDERS: PCP Nurse Practitioner Family; Visit Provider Nurse Practitioner Family
DX: M54.59 Other low back pain (principal); M48.062 Spinal stenosis, lumbar region with neurogenic claudication; M43.06 Spondylolysis, lumbar region
CPT/HCPCS: 72148